=== PATIENT | female | born 1945 | race Caucasian/White ===

== ENCOUNTER → 2017-01-23 | Outpatient (CLI) | payer OTHER, MEDICARE | LOC: MMPC 09:00 | PROVIDERS: ATTEND Family Medicine | DX: M54.89 Other dorsalgia (principal); Z71.6 Tobacco abuse counseling | CPT/HCPCS: 99214; G0463 ==

== ENCOUNTER → 2017-06-14 | Outpatient (CLI) | payer OTHER, MEDICARE | LOC: MMPC 09:00 | PROVIDERS: ATTEND Family Medicine | DX: L03.114 Cellulitis of left upper limb (principal) | CPT/HCPCS: 99214; G0463 ==